=== PATIENT | female | born 1990 | race American Indian/Alaskan Native ===

== ENCOUNTER 2016-11-03 06:43 | Observation (INO) | payer SELFPAY ==
[2016-11-03 06:44] VITALS: BMI 24.2
[2016-11-03] MEDS ORDERED: Sodium Chloride 0.9% 1,000 ML IV ONE (07:03)
[2016-11-03] MEDS ORDERED: Sodium Chloride 0.9% 1,000 ML ONE (07:06)
--- NOTE | 2016-11-03 07:13 | C.PDOC ---
History Of Present Illness 26 y/o F with hx of gastritis and pancreatitis, presenting with vomiting x 2 days. She reports that she has a history of these episodes and cannot identify a trigger. She reports that after she started vomiting she developed some periumbilical abdominal pain. Reports normal bowel and bladder habits. Denies vaginal bleeding or discharge, dysuria, chest pain, SOB, or fever. Time Seen by Provider: 11/03/16 07:07 Chief Complaint (Nursing): Abdominal Pain History Per: Patient History/Exam Limitations: no limitations Onset/Duration Of Symptoms: Days Current Symptoms Are (Timing): Still Present Location Of Pain/Discomfort: Suprapubic Radiation Of Pain To:: None Quality Of Discomfort: "Pain" Associated Symptoms: Vomiting. denies: Fever, Chills, Diarrhea, Back Pain, Chest Pain, Urinary Symptoms Recent travel outside of the [place]: No Abnormal Vaginal Bleeding: No Past Medical History Reviewed: Historical Data, Nursing Documentation, Vital Signs Vital Signs: Last Vital Signs Temp 98.0 F 11/03/16 12:33 Pulse 57 L 11/03/16 12:33 Resp 20 11/03/16 12:33 BP 120/71 11/03/16 12:33 Pulse Ox 100 11/03/16 12:33 - Medical History PMH: Asthma, Gastritis, Pancreatitis - [facility] Procedures ESOPHAGOGASTRODUODENOSCOPY [EGD] W/CLOSED BIOPSY (02/11/14) EXCISION OF STOMACH, ENDO, DIAGN (01/28/16) INFLUENZA VACCINATION (05/14/14) MANUAL ASSIST DELIV NEC (04/26/13) VACCINATION NEC (05/14/14) VENOUS CATHETERIZATION NEC (02/11/14) Family History: States: Unknown Family Hx - Social History Hx Tobacco Use: Yes Hx Alcohol Use: Yes Hx Substance Use: Yes - Immunization History Hx Tetanus Toxoid Vaccination: No Hx Influenza Vaccination: No Hx Pneumococcal Vaccination: No Review Of Systems Constitutional: Negative for: Fever, Chills Cardiovascular: Negative for: Chest Pain, Palpitations, Edema, Light Headedness Respiratory: Negative for: Cough, Shortness of Breath, Wheezing Gastrointestinal: Positive for: Vomiting, Abdominal Pain (periumbilical). Negative for: Diarrhea, Constipation Genitourinary: Negative for: Dysuria, Vaginal Discharge, Vaginal Bleeding Skin: Negative for: Rash Physical Exam - Physical Exam Appears: Well, Non-toxic, No Acute Distress Skin: Normal Color, Warm, Dry Head: Atraumatic, Normacephalic Eye(s): bilateral: Normal Inspection, PERRL, EOMI Oral Mucosa: Moist Chest: Symmetrical Cardiovascular: Rhythm Regular Respiratory: Normal Breath Sounds, No Rales, No Rhonchi, No Wheezing Gastrointestinal/Abdominal: Soft, No Tenderness, No Mass, No Distention, No Guarding, No Rebound Back: Normal Inspection, No CVA Tenderness Extremity: Normal ROM, Capillary Refill (< 2 sec.) Neurological/Psych: Oriented x3, Normal Speech, Normal Cognition ED Course And Treatment - Laboratory Results Result Diagrams: 11/03/16 07:17 11/03/16 07:17 O2 Sat by Pulse Oximetry: 99 (RA) Pulse Ox Interpretation: Normal Medical Decision Making Medical Decision Making: Past Records Reviewed: Patient with multiple visits for similar complaints. Plan: * Pepcid, Zofran, Toradol, IVFs. * Labs, UA ordered. * Reassess Progress: 9:06AM Labs grossly normal. UA negative for or infection. Patient resting comfortably. Patient has had multiple 4 CT scans in past for similar presentation. Patient placed in ED observation. Will continue to monitor and reevaluate 10:22AM Patient continues to vomit 12:16PM Patient reported that her vomiting is sometimes associated with marijuana use. 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 Gave haldol IV 5mg with resolution of symptoms. Patient has soft NT/ND abdomen. She is tolerating po. Will dc to follow-up with PMD and GI Disposition - Disposition Disposition: HOME/ ROUTINE Disposition Time: 12:18 Condition: GOOD - Clinical Impression Clinical Impression: Vomiting - Scribe Statement The provider has reviewed the documentation as recorded by the Tamie Short Provider Attestation: All medical record entries made by the Tamie were at my direction and personally dictated by me. I have reviewed the chart and agree that the record accurately reflects my personal performance of the history, physical exam, medical decision making, and the department course for this patient. I have also personally directed, reviewed, and agree with the discharge instructions and disposition.
[2016-11-03 07:25] LABS: BASO % 0.4 % (0.0-2.0); HEMATOCRIT 37.7 % (34.0-47.0); LYMPH # 0.8 K/uL (1.0-4.3); LYMPH % 10.1 % (20.0-40.0); MEAN CELL VOLUME 83.7 fL (81.0-99.0); MEAN CORPUSCULAR HGB CONC 33.5 g/dL (33.0-37.0); MEAN PLATELET VOLUME 7.7 fL (7.2-11.7); MONO # 0.1 K/uL (0.0-0.8); MONO % 1.4 % (0.0-10.0); RED CELL DISTRIBUTION WIDTH 13.1 % (11.5-14.5); WHITE BLOOD COUNT 7.8 K/uL (4.8-10.8)
[2016-11-03 07:33] LABS: CHLORIDE 100 mmol/L (98-107)
[2016-11-03 07:34] LABS: POTASSIUM 3.5 mmol/L (3.6-5.2); SODIUM 140 mmol/L (132-148)
[2016-11-03 07:36] LABS: ALB/GLOB RATIO 1.2 (1.0-2.1); ALKALINE PHOSPHATASE 95 U/L (38-126); ALT/SGPT 34 U/L (9-52); AST/SGOT 30 U/L (14-36); BILIRUBIN,TOTAL 0.5 mg/dL (0.2-1.3); BLOOD UREA NITROGEN 7 mg/dL (7-17); CARBON DIOXIDE 26 mmol/L (22-30); GFR AFRICAN-AMERICAN > 60; GLUCOSE,RANDOM 128 mg/dL (65-105); TOTAL PROTEIN 8.1 g/dL (6.3-8.3)
[2016-11-03 07:37] LABS: MAGNESIUM 1.7 mg/dL (1.6-2.3); PHOSPHOROUS 2.7 mg/dL (2.5-4.5)
[2016-11-03 08:51] LABS: RBC URINE 3 /hpf (0-3); URINE BILIRUBIN NEGATIVE (NEGATIVE); URINE BLOOD NEGATIVE (NEGATIVE); URINE COLOR Yellow (YELLOW); URINE GLUCOSE (UA) NORMAL (Normal); URINE KETONE 1+ mg/dL (NEGATIVE); URINE LEUKOCYTE ESTERASE NEG Leu/uL (Negative); URINE PROTEIN 1+ mg/dL (NEGATIVE); URINE UROBILINOGEN NORMAL mg/dL (0.2-1.0); WBC URINE 3 /hpf (0-5)
[2016-11-03 12:34] VITALS: BP 120/71; PULSE 57; RESP 20; TEMP 98
[2016-11-03 12:58] VITALS: O2SAT 99
== END 2016-11-03 12:18 | disposition home or self-care (01) ==
LOC: SUPCPDRO 06:43 → C.ER 06:43 → C.9OBSV 09:06
PROVIDERS: ADMIT Emergency Medicine; ATTEND Emergency Medicine
DX: R10.9 Unspecified abdominal pain (principal); J45.909 Unspecified asthma, uncomplicated; Z87.891 Personal history of nicotine dependence; R11.10 Vomiting, unspecified
CPT/HCPCS: 80053; 81001; 83690; 83735; 84100; 84703; 85025; 96361; 96374; 96375; 99285; G0378; J1630; J2405; J7040

== ENCOUNTER 2016-11-05 05:08 | Inpatient (IN) | payer SELFPAY ==
[2016-11-05 05:09] VITALS: BMI 24.2
[2016-11-05] MEDS ORDERED: Sodium Chloride 0.9% 1,000 ML IV ONE (05:29)
[2016-11-05] MEDS ORDERED: Iohexol 240 (50 ml) PO ONE (05:31)
--- NOTE | 2016-11-05 05:35 | C.PDOC ---
History Of Present Illness A 26 y/o F presents with abdominal pain for the past 4-5 days. Patient was here for the same complaint 2 days ago and was discharged. Reports symptoms are persistent where she still is vomiting at home. Denies diarrhea, dysuria, fever , chills, or any other complaints. Time Seen by Provider: 11/05/16 05:35 Chief Complaint (Nursing): Abdominal Pain History Per: Patient History/Exam Limitations: no limitations Onset/Duration Of Symptoms: Days Current Symptoms Are (Timing): Still Present Severity: Mild Location Of Pain/Discomfort: Diffuse Quality Of Discomfort: "Pain" Associated Symptoms: Vomiting. denies: Diarrhea Exacerbating Factors: None Alleviating Factors: None Recent travel outside of the [place]: No Additional History Per: Patient Abnormal Vaginal Bleeding: No Past Medical History Reviewed: Historical Data, Nursing Documentation, Vital Signs Vital Signs: Last Vital Signs Temp 98.5 F 11/05/16 05:17 Pulse 53 L 11/05/16 05:17 Resp 16 11/05/16 05:17 BP 148/93 H 11/05/16 05:17 Pulse Ox 100 11/05/16 05:41 - Medical History PMH: Gastritis, Pancreatitis Denies: Asthma (pt denies), Kidney Stones, Chronic Kidney Disease - [facility] Procedures ESOPHAGOGASTRODUODENOSCOPY [EGD] W/CLOSED BIOPSY (02/11/14) EXCISION OF STOMACH, ENDO, DIAGN (01/28/16) INFLUENZA VACCINATION (05/14/14) MANUAL ASSIST DELIV NEC (04/26/13) VACCINATION NEC (05/14/14) VENOUS CATHETERIZATION NEC (02/11/14) Family History: States: Unknown Family Hx - Social History Hx Tobacco Use: Yes Hx Alcohol Use: No (pt denies) Hx Substance Use: No (pt denies) - Immunization History Hx Tetanus Toxoid Vaccination: No Hx Influenza Vaccination: No Hx Pneumococcal Vaccination: No Review Of Systems Except As Marked, All Systems Reviewed And Found Negative. Constitutional: Negative for: Fever, Chills Gastrointestinal: Positive for: Vomiting, Abdominal Pain. Negative for: Diarrhea Genitourinary: Negative for: Dysuria Physical Exam - Physical Exam Appears: Non-toxic, No Acute Distress Skin: Warm, Dry Head: Atraumatic, Normacephalic Cardiovascular: Rhythm Regular Respiratory: Normal Breath Sounds, No Accessory Muscle Use, No Rales, No Rhonchi , No Wheezing Gastrointestinal/Abdominal: Soft, Tenderness (generalized ), No Guarding, No Rebound Neurological/Psych: Oriented x3, Normal Speech, Normal Cognition Gait: Steady ED Course And Treatment O2 Sat by Pulse Oximetry: 100 (RA) Pulse Ox Interpretation: Normal Medical Decision Making Medical Decision Making: Impression: A 26 y/o F presents with abdominal pain for the past 4-5 days. Pt has numerous prior visits for the same symptoms. Plans: * CT Abd * Blood labs * Omnipaque * Toradol * Reglan * IV fluids * UA * Reassess Disposition - Disposition Disposition Time: 07:00 Condition: STABLE Forms: [facility] (Greek) - POA Present On Arrival: None - Clinical Impression Clinical Impression: Nausea & vomiting, Abdominal pain - Scribe Statement The provider has reviewed the documentation as recorded by the Scribeliz cabrales All medical record entries made by the Scribe were at my direction and personally dictated by me. I have reviewed the chart and agree that the record accurately reflects my personal performance of the history, physical exam, medical decision making, and the department course for this patient. I have also personally directed, reviewed, and agree with the discharge instructions and disposition.
[2016-11-05 05:59] LABS: RBC URINE 14 /hpf (0-3); URINE BACTERIA RARE (<OCC); URINE BILIRUBIN NEGATIVE (NEGATIVE); URINE BLOOD NEGATIVE (NEGATIVE); URINE COLOR Amber (YELLOW); URINE GLUCOSE (UA) NORMAL (Normal); URINE KETONE 2+ mg/dL (NEGATIVE); URINE LEUKOCYTE ESTERASE 3+ Leu/uL (Negative); URINE PROTEIN 2+ mg/dL (NEGATIVE); URINE UROBILINOGEN NORMAL mg/dL (0.2-1.0); WBC URINE 40 /hpf (0-5)
[2016-11-05 06:22] LABS: BASO # 0.1 K/uL (0.0-0.2); EOS % 0.5 % (0.0-4.0); HEMATOCRIT 34.2 % (34.0-47.0); LYMPH # 2.1 K/uL (1.0-4.3); LYMPH % 30.5 % (20.0-40.0); MEAN CELL VOLUME 82.3 fL (81.0-99.0); MEAN CORPUSCULAR HEMOGLOBIN 28.3 pg (27.0-31.0); MEAN CORPUSCULAR HGB CONC 34.5 g/dL (33.0-37.0); MONO # 0.5 K/uL (0.0-0.8); MONO % 7.5 % (0.0-10.0); RED CELL DISTRIBUTION WIDTH 12.8 % (11.5-14.5); WHITE BLOOD COUNT 6.7 K/uL (4.8-10.8)
[2016-11-05 06:33] LABS: ALB/GLOB RATIO 1.3 (1.0-2.1); ALKALINE PHOSPHATASE 66 U/L (38-126); ALT/SGPT 29 U/L (9-52); AST/SGOT 18 U/L (14-36); BILIRUBIN,TOTAL 0.2 mg/dL (0.2-1.3); BLOOD UREA NITROGEN 10 mg/dL (7-17); CALCIUM 8.2 mg/dl (8.6-10.4); CARBON DIOXIDE 25 mmol/L (22-30); CHLORIDE 97 mmol/L (98-107); GFR AFRICAN-AMERICAN > 60; GLUCOSE,RANDOM 73 mg/dL (65-105); POTASSIUM 3.2 mmol/L (3.6-5.2); SODIUM 136 mmol/L (132-148); TOTAL PROTEIN 6.4 g/dL (6.3-8.3)
[2016-11-05] MEDS ORDERED: Iodixanol 320 MG/ML 100 ML BOTTLE IV ONE (08:34)
--- NOTE | 2016-11-05 09:19 | CT ---
PROCEDURE: CT Abdomen and Pelvis with oral and IV contrast. HISTORY: abd pain/ vomiting COMPARISON: CT abdomen pelvis with contrast performed 01/29/16 TECHNIQUE: Contiguous axial images of the abdomen and pelvis. Oral and IV contrast was administered. Coronal and Sagittal reformats generated and reviewed. Contrast dose: 100 mL Visipaque Radiation dose: Total exam DLP = 454.96 mGy-cm. This CT exam was performed using one or more of the following dose reduction techniques: Automated exposure control, adjustment of the mA and/or kV according to patient size, and/or use of iterative reconstruction technique. FINDINGS: LOWER THORAX: No visible consolidation, pleural effusion, or pneumothorax. Small hiatal hernia. Oral contrast within the distal esophagus consistent with gastroesophageal reflux. LIVER: Hypoattenuation of the liver compatible with hepatic steatosis. GALLBLADDER AND BILE DUCTS: Unremarkable. PANCREAS: Unremarkable. SPLEEN: Unremarkable. ADRENALS: Unremarkable. KIDNEYS AND URETERS: The kidneys enhance symmetrically. No hydronephrosis or obstructing renal calculus. BLADDER: The urinary bladder appears unremarkable. REPRODUCTIVE: Uterus is present. Bilateral probable ovarian cysts. APPENDIX: The appendix measures approximately 8 mm in diameter. No significant secondary signs of acute appendicitis identified. BOWEL: The stomach is nondistended. The bowel loops appear within normal limits of caliber without evidence of intestinal obstruction. PERITONEUM: Small pelvic free fluid. No definite free air. LYMPH NODES: Sub cm mesenteric and retroperitoneal lymph nodes, nonspecific. VASCULATURE: No aortic aneurysm. BONES: No acute osseous abnormality is detected. OTHER FINDINGS: None. IMPRESSION: Prominent bilateral probable ovarian cysts. Small pelvic free fluid. Recommend pelvic ultrasound for further evaluation. The appendix appears mildly dilated measuring approximately 8 mm in diameter. No significant secondary signs of acute appendicitis identified. Recommend clinical correlation including white blood cell count and physical exam to assess for possibility of appendicitis. Hepatic steatosis. Additional findings as above.
[2016-11-05] MEDS ORDERED: Morphine 4 MG/ML VIAL ONE (09:32)
[2016-11-05] MEDS ORDERED: Potassium Chloride 20 mEq ER Tab PO STA (09:48)
--- NOTE | 2016-11-05 10:39 | CP.PCM.CON ---
History of Present Illness - History of Present Illness History of Present Illness: General surgery consult note for Dr. Tin Zaidi, PGY-2 Pt S & E at bedside. 26F w/no sig PMH consulted for possible appendicitis. Patient reports diffuse, non radiating, constant, severe abdominal pain x 4 days. No aggravating or alleviating factors identified. Admits to nausea, chills, nb/bilious emesis, anorexia, and constipation. Denies F, diarrhea, flatus, headache, dysuria, CP, palpitations, sore throat. PMH: Gastritis, hx of duodenal ulcer PSH: Denies All: [facility] SH: Admits to ETOH #4-5 drinks/mo, tobacco use- 1 ppd x 11 yrs, MJ use #10 /day , denies other illicit drug use PMD: Denies Review of Systems - Review of Systems All systems: reviewed and no additional remarkable complaints except - Constitutional Constitutional: Chills. absent: Fever - EENT Eyes: absent: Change in Vision Nose/Mouth/Throat: absent: Sore Throat - Cardiovascular Cardiovascular: absent: Chest Pain, Palpitations - Respiratory Respiratory: absent: Cough - Gastrointestinal Gastrointestinal: Abdominal Pain, Constipation, Nausea, Vomiting. absent: Diarrhea, Hematemesis, Hematochezia - Genitourinary Genitourinary: absent: Change in Urinary Stream, Dysuria, Hematuria - Musculoskeletal Musculoskeletal: absent: Numbness, Tingling Past Patient History - Infectious Disease Hx of Infectious Diseases: None - Tetanus Immunizations Tetanus Immunization: Unknown - Past Medical History & Family History Past Medical History?: No - Past Social History Smoking Status: Heavy Smoker > 10 Cigarettes Daily - CARDIAC Hx Cardiac Disorders: No - PULMONARY Hx Asthma: No (pt denies) - NEUROLOGICAL Hx Neurological Disorder: No - HEENT Hx HEENT Problems: No - RENAL Hx Chronic Kidney Disease: No Hx Kidney Stones: No - ENDOCRINE/METABOLIC Hx Endocrine Disorders: No - HEMATOLOGICAL/ONCOLOGICAL Hx Blood Disorders: No - INTEGUMENTARY Hx Dermatological Problems: No - MUSCULOSKELETAL/RHEUMATOLOGICAL Hx Falls: No - GASTROINTESTINAL Hx Gastritis: Yes Hx Pancreatitis: Yes - GENITOURINARY/GYNECOLOGICAL Hx Genitourinary Disorders: No - PSYCHIATRIC Hx Substance Use: No (pt denies) - SURGICAL HISTORY Hx Surgeries: No - ANESTHESIA Hx Anesthesia: No Hx Anesthesia Reactions: No Hx Malignant Hyperthermia: No Meds Allergies/Adverse Reactions: Allergies Allergy/AdvReac Type Severity Reaction Status Date / Time Penicillins Allergy ANGIOEDEMA Verified 11/05/16 05:22 - Medications Medications: Current Medications Sodium Chloride (Sodium Chloride 0.9%) 1,000 mls @ 100 mls/hr IV .Q10H [facility] Stop: 11/05/16 15:28 Last Admin: 11/05/16 06:16 Dose: 100 mls/hr Physical Exam - Constitutional Appears: Non-toxic, No Acute Distress - Head Exam Head Exam: ATRAUMATIC, NORMAL INSPECTION, NORMOCEPHALIC - Eye Exam Eye Exam: EOMI, Normal appearance - ENT Exam ENT Exam: Mucous Membranes Moist, Normal Exam - Neck Exam Neck exam: Positive for: Full Rom - Respiratory Exam Respiratory Exam: Clear to Auscultation Bilateral, NORMAL BREATHING PATTERN. absent: Chest Wall Tenderness - Cardiovascular Exam Cardiovascular Exam: REGULAR RHYTHM, +S1, +S2 - GI/Abdominal Exam GI & Abdominal Exam: Normal Bowel Sounds, Soft, Tenderness (diffuse). absent: Distended, Firm, Guarding, Rigid - Extremities Exam Extremities exam: Positive for: normal inspection. Negative for: pedal edema - Neurological Exam Neurological exam: Alert, Oriented x3 - Psychiatric Exam Psychiatric exam: Normal Affect, Normal Mood - Skin Skin Exam: Dry, Intact, Normal Color, Warm Results - Vital Signs Recent Vital Signs: Last Vital Signs Temp 97.4 F L 11/05/16 09:00 Pulse 54 L 11/05/16 09:00 Resp 14 11/05/16 09:00 BP 154/98 H 11/05/16 09:00 Pulse Ox 100 11/05/16 09:00 - Labs Result Diagrams: 11/05/16 06:17 11/05/16 06:17 Labs: Laboratory Results - last 24 hr 11/05/16 11/05/16 11/05/16 05:35 05:35 06:17 WBC 6.7 RBC 4.16 Hgb 11.8 Hct 34.2 MCV 82.3 MCH 28.3 MCHC 34.5 RDW 12.8 Plt Count 254 MPV 7.0 L Neut % (Auto) 60.5 Lymph % (Auto) 30.5 [place] % (Auto) 7.5 Eos % (Auto) 0.5 Baso % (Auto) 1.0 Neut # 4.1 Lymph # 2.1 [place] # 0.5 Eos # 0.0 Baso # 0.1 Sodium Potassium Chloride Carbon Dioxide Anion Gap BUN Creatinine Est GFR ( Amer) Est GFR (Non-Af Amer) Random Glucose Calcium Total Bilirubin AST ALT Alkaline Phosphatase Total Protein Albumin Globulin Albumin/Globulin Ratio Lipase Urine Color [place] Urine Clarity Hazy Urine pH 5.0 Ur Specific [place] 1.034 H Urine Protein 2+ H Urine Glucose (UA) Normal Urine Ketones 2+ H Urine Blood Negative Urine Nitrate Negative Urine Bilirubin Negative Urine Urobilinogen Normal Ur Leukocyte Esterase 3+ H Urine WBC (Auto) 40 H Urine RBC (Auto) 14 H Ur Squamous Epith Cells 43 H Urine Bacteria Rare Urine HCG, Qual Negative Urine Opiates Screen Negative Urine Methadone Screen Negative Ur Barbiturates Screen Negative Ur Phencyclidine Scrn Negative Ur Amphetamines Screen Negative U Benzodiazepines Scrn Negative U Oth Cocaine Metabols Negative U Cannabinoids Screen Positive 11/05/16 06:17 WBC RBC Hgb Hct MCV MCH MCHC RDW Plt Count MPV Neut % (Auto) Lymph % (Auto) [place] % (Auto) Eos % (Auto) Baso % (Auto) Neut # Lymph # [place] # Eos # Baso # Sodium 136 Potassium 3.2 L Chloride 97 L Carbon Dioxide 25 Anion Gap 17 BUN 10 Creatinine 0.7 Est GFR ( Amer) > 60 Est GFR (Non-Af Amer) > 60 Random Glucose 73 Calcium 8.2 L Total Bilirubin 0.2 AST 18 ALT 29 Alkaline Phosphatase 66 Total Protein 6.4 Albumin 3.6 Globulin 2.8 Albumin/Globulin Ratio 1.3 Lipase 63 Urine Color Urine Clarity Urine pH Ur Specific [place] Urine Protein Urine Glucose (UA) Urine Ketones Urine Blood Urine Nitrate Urine Bilirubin Urine Urobilinogen Ur Leukocyte Esterase Urine WBC (Auto) Urine RBC (Auto) Ur Squamous Epith Cells Urine Bacteria Urine HCG, Qual Urine Opiates Screen Urine Methadone Screen Ur Barbiturates Screen Ur Phencyclidine Scrn Ur Amphetamines Screen U Benzodiazepines Scrn U Oth Cocaine Metabols U Cannabinoids Screen Assessment & Plan - Assessment and Plan (Free Text) Assessment: 26F w/diffuse abdominal pain, likely 2/2 UTI Plan: No surgical intervention at this time Abx for UTI Appendix likely mildly dilated due to constipation Bowel regimen IVF Obgyn consult for ovarian cysts Thank you for this consult DW attending Dyan, PGY-1 - Date & Time Date: 11/05/16 Time: 10:43
[2016-11-05] MEDS ORDERED: Ciprofloxacin 400mg/200ml D5W 400 MG/200 ML BAG IVPB STA (10:49)
[2016-11-05] MEDS ORDERED: Potassium Chloride 20 mEq ER Tab PO ONE (11:01)
[2016-11-05] MEDS ORDERED: Ciprofloxacin 400mg/200ml D5W 400 MG/200 ML BAG IVPB ONE (11:02)
--- NOTE | 2016-11-05 11:03 | US ---
HISTORY: Pelvic pain r/o ovarian cyst COMPARISON: None available. TECHNIQUE: Transabdominal and transvaginal pelvic ultrasound was performed. FINDINGS: UTERUS: Measures 9.2 x 5.2 x 6.4 cm. Retroverted, normal in size and appearance. No fibroid or other mass lesion seen. ENDOMETRIUM: Measures 4 mm in diameter. Unremarkable. CERVIX: No cervical abnormality identified. RIGHT OVARY: Measures 3.8 x 2.4 x 3.1 cm. No solid mass. Normal flow. LEFT OVARY: Measures 4.4 x 2.3 x 3.3 cm. No solid mass. Normal flow. FREE FLUID: There is small amount of free fluid in the cul de sac, likely physiologic. OTHER FINDINGS: None. IMPRESSION: Normal pelvic ultrasound.
--- NOTE | 2016-11-05 11:14 | RAD ---
HISTORY: preop COMPARISON: 01/28/2016 FINDINGS: LUNGS: The lungs are well inflated and clear. PLEURA: No significant pleural effusion identified, no pneumothorax apparent. CARDIOVASCULAR: Normal. OSSEOUS STRUCTURES: No significant abnormalities. VISUALIZED UPPER ABDOMEN: Normal. OTHER FINDINGS: None. IMPRESSION: No active pulmonary disease.
[2016-11-05] MEDS: Sodium Chloride 0.9% 1,000 ML IV SCH (13:43)
--- NOTE | 2016-11-05 16:37 | RAD ---
PROCEDURE: Radiographs of the chest and abdomen (obstructive series) HISTORY: Diffuse Abdominal Pain, NO bowel movement for 3day COMPARISON: CT abdomen and pelvis performed the same day TECHNIQUE: AP radiograph of the chest, with upright and supine radiographs of the abdomen. FINDINGS: CHEST: Lungs: Clear. Cardiovascular: Normal size heart. No pulmonary vascular congestion. Pleura: No pleural fluid. No pneumothorax. Other findings: None. ABDOMEN AND PELVIS: Bowel: The small bowel loops are normal in caliber. There is contrast material in the distal ileum and colon from prior oral ingestion. Free air: None. Bones: Unremarkable. Other findings: None. IMPRESSION: Nonobstructive bowel gas pattern. Clear lungs.
[2016-11-05] MEDS: Pantoprazole 40 mg EC Tab PO SCH (16:56)
--- NOTE | 2016-11-05 18:23 | CP.PCM.PN ---
Subjective - Date & Time of Evaluation Date of Evaluation: 11/05/16 Time of Evaluation: 18:20 - Subjective Subjective: patient interviwed and examined. has a soft abdomen with diffuse abdominal tenderness. no masses. findings not consistent with a five day old appendicitis. regardless no surgery will be schedulred tonight. she just had a whole bowl of soup. will reevaluate in am Objective - Vital Signs/Intake and Output Vital Signs (last 24 hours): Temp Pulse Resp BP Pulse Ox 98.5 F 57 L 18 132/82 100 11/05/16 17:50 11/05/16 17:50 11/05/16 17:50 11/05/16 17:50 11/05/16 17:50 - Medications Medications: Current Medications Sodium Chloride (Sodium Chloride 0.9%) 1,000 mls @ 100 mls/hr IV .Q10H [facility] Last Admin: 11/05/16 13:43 Dose: 100 mls/hr Ciprofloxacin (Cipro 400mg/200ml Dsw) 400 mg in 200 mls @ 133 mls/hr IVPB Q12H [facility] Ketorolac Tromethamine (Toradol) 30 mg IVP Q6 PRN PRN Reason: Pain, severe (8-10) Last Admin: 11/05/16 15:17 Dose: 30 mg Ketorolac Tromethamine (Toradol) 15 mg IVP Q6 PRN PRN Reason: Pain, moderate (4-7) Metoclopramide HCl (Reglan) 10 mg IVP ACHS PRN PRN Reason: Nausea/Vomiting Ondansetron HCl (Zofran Inj) 4 mg IVP Q6 PRN PRN Reason: Nausea/Vomiting Pantoprazole Sodium (Protonix Ec Tab) 40 mg PO DAILY [facility] Last Admin: 11/05/16 16:56 Dose: Not Given
--- NOTE | 2016-11-05 20:13 | CP.PCM.HP ---
<Arsalan Jones - Last Filed: 11/05/16 20:11> History of Present Illness - History of Present Illness History of Present Illness: Chief complaint: "Abdominal pain" 26 yo F who presents here today with c/o severe, diffuse abdominal pain that has been constant x 3-4 days. Patient reports feelings of nausea and multiple episodes of bilious, non-bloody vomiting each day since the pain began. She denies any mitigating factors, but does mention having difficulty ambulating 2/ 2 pain and that any quick movement proves exacerbation. Patient has been unable to tolerate liquid/solid PO, reports constipation (last BM 4 days ago) and endorses feeling mildly lightheaded as well. Of note, she had a similar episode of abdominal pain in January 2016, in which she was admitted here for acute gastritis/pancreatitis. At that time, she had an EGD done that showed erosive gastritis and duodenal polyp, along with noted fecal retention. (-) H. pylori. Her LNMP was from October 21-, no changes from usual, denies any increased flow or clots. Denies any chest pain, SOB, headache, fever, chills or any other complains at this time. PMD: None OBGYN: [facility] PMHx: - Hiatal Hernia - Gastritis - Esophagitis - Asthma (no inhaler or medications at home) PSHx: - EGD (during admission in 2015) FHx: - M: 55yo suffers from DM, CAD, CA x 1, CVA x 2, HTN, HLD, Primary brain tumor ( unknown which) with seizures - F: alcoholism - Younger sister: T2DM Social: - Drugs: Admits to MJ everyday - Tobacco: 1 ppd x 7 years - Alcohol: Admits to a few drinks on occasion - Sexual: In a mcf[facility] monagamous relationship with male partner. 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 absent: Chills, Fever - EENT Eyes: absent: Change in Vision Nose/Mouth/Throat: absent: Sore Throat - Cardiovascular Cardiovascular: Lightheadedness. absent: Chest Pain, Dyspnea on Exertion, Palpitations - Respiratory Respiratory: absent: Cough - Gastrointestinal Gastrointestinal: Abdominal Pain, Constipation, Heartburn, Nausea, Vomiting - Genitourinary Genitourinary: absent: Difficulty Urinating, Dysuria, Urinary Hesitance - Reproductive: Female Reproductive:Female: Normal Menses. absent: Abnormal Vaginal Bleeding, Pelvic Pain - Integumentary Integumentary: absent: Lesions - Neurological Neurological: Dizziness Past Patient History - Infectious Disease Hx of Infectious Diseases: None - Tetanus Immunizations Tetanus Immunization: Unknown - Past Medical History & Family History Past Medical History?: No - Past Social History Smoking Status: Heavy Smoker > 10 Cigarettes Daily - CARDIAC Hx Cardiac Disorders: No - PULMONARY Hx Asthma: No (pt denies) - NEUROLOGICAL Hx Neurological Disorder: No - HEENT Hx HEENT Problems: No - RENAL Hx Chronic Kidney Disease: No Hx Kidney Stones: No - ENDOCRINE/METABOLIC Hx Endocrine Disorders: No - HEMATOLOGICAL/ONCOLOGICAL Hx Blood Disorders: No - INTEGUMENTARY Hx Dermatological Problems: No - MUSCULOSKELETAL/RHEUMATOLOGICAL Hx Falls: No - GASTROINTESTINAL Hx Gastritis: Yes Hx Pancreatitis: Yes - GENITOURINARY/GYNECOLOGICAL Hx Genitourinary Disorders: No - PSYCHIATRIC Hx Substance Use: (marijuana had last wednesday) - SURGICAL HISTORY Hx Surgeries: No - ANESTHESIA Hx Anesthesia: No Hx Anesthesia Reactions: No Hx Malignant Hyperthermia: No Meds Allergies/Adverse Reactions: Allergies Allergy/AdvReac Type Severity Reaction Status Date / Time Penicillins Allergy ANGIOEDEMA Verified 11/05/16 05:22 Physical Exam - Constitutional Additional comments: (+) appears in mild distress 2/2 pain - Head Exam Head Exam: ATRAUMATIC, NORMAL INSPECTION, NORMOCEPHALIC - Eye Exam Eye Exam: EOMI, Normal appearance, PERRL - ENT Exam ENT Exam: Mucous Membranes Moist - Neck Exam Neck exam: Positive for: Normal Inspection. Negative for: Lymphadenopathy - Respiratory Exam Respiratory Exam: Clear to Auscultation Bilateral, NORMAL BREATHING PATTERN - Cardiovascular Exam Cardiovascular Exam: REGULAR RHYTHM, RRR, +S1, +S2 - GI/Abdominal Exam GI & Abdominal Exam: Guarding, Normal Bowel Sounds, Soft, Tenderness. absent: Distended, Firm, Hernia, Mass, Organomegaly, Rebound Additional comments: (+) diffuse tenderness during auscultation as well as light and deep palpation in all quadrants, most notably in the RLQ. (+) Questionably positive mcburney's , psoas and obturator signs b/c patient was diffusely tender and minimal movement elicited pain. (+) CVAT bilaterally R>L - Rectal Exam Rectal Exam: Deferred - Extremities Exam Extremities exam: Positive for: normal inspection. Negative for: calf tenderness, pedal edema, tenderness - Back Exam Back exam: CVA tenderness (L), CVA tenderness (R), NORMAL INSPECTION - Neurological Exam Neurological exam: Alert - Psychiatric Exam Psychiatric exam: Normal Affect, Normal Mood - Skin Skin Exam: Dry, Intact, Normal Color, Warm Results - Vital Signs Recent Vital Signs: Last Vital Signs Temp 98.5 F 11/05/16 17:50 Pulse 57 L 11/05/16 17:50 Resp 18 11/05/16 17:50 BP 132/82 11/05/16 17:50 Pulse Ox 100 11/05/16 17:50 - Labs Result Diagrams: 11/05/16 06:17 11/05/16 06:17 Labs: Laboratory Results - last 24 hr 11/05/16 17:53 Hepatitis A IgM Ab Negative Hep Bs Antigen Negative Hep B Core IgM Ab Negative Hepatitis C Antibody Negative Assessment & Plan (1) Abdominal pain Assessment and Plan: Hx of erosive gastritis, esophagitis, duodonal polyp, hiatal hernia 11/05: GI consulted, Dr Felipe 11/05: Surgery consulted, Dr Chowdary 11/05: Toradol 15mg iv q6 prn for moderate pain. Toradol 30mg iv q6 for severe pain. 11/05: Series abdominal obstructive series xray: nonobstructive bowel gas pattern. 11/05: CT abdomen/pelvis: The appendix appears mildly dilated measuring approximately 8 mm in diameter. No significant secondary signs of acute appendicitis identified. Hepatic steatosis. Prominent bilateral probable ovarian cysts. 11/05: npo after midnight. will start clear liquid diet tomorrow if no GI/Surg intervention. Status: Acute (2) Nausea & vomiting Assessment and Plan: Zofran iv 4mg q6 prn reglan 10mg iv q6 prn Status: Acute (3) UTI (urinary tract infection) Assessment and Plan: 11/05: UA -> Ur Ketones 2+, Ur Leuk Est 3+, Ur RBC 40 11/05: ciprofloxacin 400mg iv q12 11/05: f/u blood culture, urine culture Status: Acute (4) Prophylactic measure Assessment and Plan: SCD's b/l Protonix 40mg po daily npo tonight Status: Acute <Deny Christensen - Last Filed: 11/06/16 18:15> Results - Vital Signs Recent Vital Signs: Last Vital Signs Temp 98.0 F 11/06/16 08:16 Pulse 56 L 11/06/16 08:16 Resp 20 11/06/16 08:16 BP 113/78 11/06/16 08:16 Pulse Ox 96 11/06/16 08:16 - Labs Result Diagrams: 11/05/16 06:17 11/05/16 06:17 Labs: Laboratory Results - last 24 hr 11/05/16 17:53 Hepatitis A IgM Ab Negative Hep Bs Antigen Negative Hep B Core IgM Ab Negative Hepatitis C Antibody Negative Attending/Attestation - Attestation I have personally seen and examined this patient.: Yes I have fully participated in the care of the patient.: Yes I have reviewed all pertinent clinical information: Yes Notes (Text): Patient was seen and examined on 11/05/16. History, Physical, Assessment and Plan/Orders were thoroughly gone over with the Resident. Deny Christensen D.O.
[2016-11-05] MEDS: Ciprofloxacin 400mg/200ml D5W 400 MG/200 ML BAG IVPB SCH (23:13)
[2016-11-06] MEDS: Sodium Chloride 0.9% 1,000 ML IV SCH ×2 (01:37→08:44)
[2016-11-06 01:52] VITALS: RESP 20
--- NOTE | 2016-11-06 07:40 | CP.PCM.PN ---
Subjective - Date & Time of Evaluation Date of Evaluation: 11/06/16 Time of Evaluation: 06:40 - Subjective Subjective: General Sx progress note for Dr. Tin Zaidi, PGY-1 Pt S & E at bedside. Pt reports abdominal pain much improved, now localized to suprapubic area and right side of abdomen. Admits to hunger. Denies other complaints. Objective - Vital Signs/Intake and Output Vital Signs (last 24 hours): Temp Pulse Resp BP Pulse Ox 98.1 F 53 L 20 103/56 L 97 11/06/16 03:12 11/06/16 03:12 11/06/16 03:12 11/06/16 03:12 11/06/16 03:12 - Medications Medications: Current Medications Sodium Chloride (Sodium Chloride 0.9%) 1,000 mls @ 100 mls/hr IV .Q10H [facility] Last Admin: 11/06/16 01:37 Dose: Not Given Ciprofloxacin (Cipro 400mg/200ml Dsw) 400 mg in 200 mls @ 133 mls/hr IVPB Q12H [facility] Last Admin: 11/05/16 23:13 Dose: 133 mls/hr Ketorolac Tromethamine (Toradol) 30 mg IVP Q6 PRN PRN Reason: Pain, severe (8-10) Last Admin: 11/06/16 03:29 Dose: 30 mg Ketorolac Tromethamine (Toradol) 15 mg IVP Q6 PRN PRN Reason: Pain, moderate (4-7) Metoclopramide HCl (Reglan) 10 mg IVP ACHS PRN PRN Reason: Nausea/Vomiting Ondansetron HCl (Zofran Inj) 4 mg IVP Q6 PRN PRN Reason: Nausea/Vomiting Pantoprazole Sodium (Protonix Ec Tab) 40 mg PO DAILY [facility] Last Admin: 11/05/16 16:56 Dose: Not Given - Constitutional Appears: Non-toxic, No Acute Distress - Head Exam Head Exam: ATRAUMATIC, NORMAL INSPECTION, NORMOCEPHALIC - Eye Exam Eye Exam: EOMI, Normal appearance - ENT Exam ENT Exam: Mucous Membranes Moist, Normal Exam - Neck Exam Neck Exam: Full ROM - Respiratory Exam Respiratory Exam: Clear to Ausculation Bilateral, NORMAL BREATHING PATTERN - Cardiovascular Exam Cardiovascular Exam: REGULAR RHYTHM, +S1, +S2 - GI/Abdominal Exam GI & Abdominal Exam: Soft, Tenderness (suprapubic, right quadrants). absent: Distended, Firm, Guarding, Rigid - Extremities Exam Extremities Exam: Full ROM - Neurological Exam Neurological Exam: Alert, Awake, CN II-XII Intact, Oriented x3 - Psychiatric Exam Psychiatric exam: Normal Affect, Normal Mood - Skin Skin Exam: Dry, Intact, Normal Color, Warm Assessment and Plan - Assessment and Plan (Free Text) Assessment: 26F w/abdominal pain, improved Plan: No surgical intervention at this time Pt asking for diet Further mgmt as per primary and GI teams Thank you for this consult, please re-consult as needed DW attending Dyan, PGY-1
--- NOTE | 2016-11-06 08:13 | CP.PCM.CON ---
History of Present Illness - History of Present Illness History of Present Illness: GI service consult We were ot notified about consult. I see the name on my census now. Admitted with abdom karen- LLQ sharp and naus and vomiting. PMH etoh- stopped 2 months ago, pancreatitis, gastritis, duodenitis , esophagitis. EGD done 01.25 Review of Systems - Constitutional Constitutional: Anorexia - EENT Eyes: absent: Photophobia Nose/Mouth/Throat: absent: Dental Pain - Cardiovascular Cardiovascular: absent: Chest Pain, Dyspnea - Respiratory Respiratory: absent: Hemoptysis, Wheezing - Gastrointestinal Gastrointestinal: Abdominal Pain, Constipation, Nausea, Vomiting. absent: Diarrhea, Hematemesis, Hematochezia, Melena - Genitourinary Genitourinary: absent: Hematuria - Musculoskeletal Musculoskeletal: absent: Muscle Cramps - Integumentary Integumentary: absent: Jaundice - Neurological Neurological: absent: Convulsions Past Patient History - Infectious Disease Hx of Infectious Diseases: None - Tetanus Immunizations Tetanus Immunization: Unknown - Past Medical History & Family History Past Medical History?: No - Past Social History Smoking Status: Heavy Smoker > 10 Cigarettes Daily - CARDIAC Hx Cardiac Disorders: No - PULMONARY Hx Asthma: No (pt denies) - NEUROLOGICAL Hx Neurological Disorder: No - HEENT Hx HEENT Problems: No - RENAL Hx Chronic Kidney Disease: No Hx Kidney Stones: No - ENDOCRINE/METABOLIC Hx Endocrine Disorders: No - HEMATOLOGICAL/ONCOLOGICAL Hx Blood Disorders: No - INTEGUMENTARY Hx Dermatological Problems: No - MUSCULOSKELETAL/RHEUMATOLOGICAL Hx Falls: No - GASTROINTESTINAL Hx Gastritis: Yes Hx Pancreatitis: Yes - GENITOURINARY/GYNECOLOGICAL Hx Genitourinary Disorders: No - PSYCHIATRIC Hx Substance Use: (marijuana had last wednesday) - SURGICAL HISTORY Hx Surgeries: No - ANESTHESIA Hx Anesthesia: No Hx Anesthesia Reactions: No Hx Malignant Hyperthermia: No Meds Allergies/Adverse Reactions: Allergies Allergy/AdvReac Type Severity Reaction Status Date / Time Penicillins Allergy ANGIOEDEMA Verified 11/05/16 05:22 - Medications Medications: Current Medications Sodium Chloride (Sodium Chloride 0.9%) 1,000 mls @ 100 mls/hr IV .Q10H [facility] Last Admin: 11/06/16 01:37 Dose: Not Given Ciprofloxacin (Cipro 400mg/200ml Dsw) 400 mg in 200 mls @ 133 mls/hr IVPB Q12H [facility] Last Admin: 11/05/16 23:13 Dose: 133 mls/hr Ketorolac Tromethamine (Toradol) 30 mg IVP Q6 PRN PRN Reason: Pain, severe (8-10) Last Admin: 11/06/16 03:29 Dose: 30 mg Ketorolac Tromethamine (Toradol) 15 mg IVP Q6 PRN PRN Reason: Pain, moderate (4-7) Metoclopramide HCl (Reglan) 10 mg IVP ACHS PRN PRN Reason: Nausea/Vomiting Ondansetron HCl (Zofran Inj) 4 mg IVP Q6 PRN PRN Reason: Nausea/Vomiting Pantoprazole Sodium (Protonix Ec Tab) 40 mg PO DAILY [facility] Last Admin: 11/05/16 16:56 Dose: Not Given Physical Exam - Constitutional Appears: Non-toxic - Neck Exam Neck exam: Negative for: Tenderness - Respiratory Exam Respiratory Exam: Clear to Auscultation Bilateral - Cardiovascular Exam Cardiovascular Exam: RRR - GI/Abdominal Exam GI & Abdominal Exam: Guarding, Normal Bowel Sounds, Soft, Tenderness. absent: Distended Additional comments: mod LLQ tenderness - Extremities Exam Extremities exam: Positive for: normal inspection - Neurological Exam Neurological exam: Alert, Oriented x3 Results - Vital Signs Recent Vital Signs: Last Vital Signs Temp 98.1 F 11/06/16 03:12 Pulse 53 L 11/06/16 03:12 Resp 20 11/06/16 03:12 BP 103/56 L 11/06/16 03:12 Pulse Ox 97 11/06/16 03:12 - Labs Result Diagrams: 11/05/16 06:17 11/05/16 06:17 Labs: Laboratory Results - last 24 hr 11/05/16 17:53 Hepatitis A IgM Ab Negative Hep Bs Antigen Negative Hep B Core IgM Ab Negative Hepatitis C Antibody Negative Assessment & Plan (1) Appendicitis Assessment and Plan: Distended appendix on CT. Seen by Dr Chowdary - for surgery. Status: Acute (2) Abdominal pain Assessment and Plan: Due to appendicitis. Status: Acute (3) Nausea & vomiting Status: Acute (4) UTI (urinary tract infection) Status: Acute (5) Constipation Assessment and Plan: Has not been eating for 5 days Status: Acute (6) Gastritis Assessment and Plan: Rec- PPI/pepcid Status: Acute (7) Pancreatitis Assessment and Plan: In past- from etoh. Status: Acute
[2016-11-06 08:17] VITALS: O2SAT 96
[2016-11-06 08:19] VITALS: BP 113/78; PULSE 56; TEMP 98
[2016-11-06] MEDS ORDERED: Potassium Chloride 20 mEq ER Tab PO SCH (10:00)
[2016-11-06] MEDS: Pantoprazole 40 mg EC Tab PO SCH (11:00)
[2016-11-06] MEDS: Ciprofloxacin 400mg/200ml D5W 400 MG/200 ML BAG IVPB SCH (11:54)
--- NOTE | 2016-11-06 15:07 | CP.PCM.DIS ---
<Cyndi Bangura - Last Filed: 11/06/16 15:03> Provider - Provider Date of Admission: 11/05/16 10:57 Attending physician: Deny Christensen MD Consults: Dr. Felipe- GI Dr. Chowdary- surgery Time Spent in preparation of Discharge (in minutes): 45 Diagnosis - Discharge Diagnosis (1) Abdominal pain Status: Acute Comment: see summary for details Hospital Course - Lab Results Lab Results: Most Recent Lab Values WBC 6.7 K/uL (4.8-10.8) 11/05/16 06:17 RBC 4.16 Mil/uL (3.80-5.20) 11/05/16 06:17 Hgb 11.8 g/dL (11.0-16.0) 11/05/16 06:17 Hct 34.2 % (34.0-47.0) 11/05/16 06:17 MCV 82.3 fL (81.0-99.0) 11/05/16 06:17 MCH 28.3 pg (27.0-31.0) 11/05/16 06:17 MCHC 34.5 g/dL (33.0-37.0) 11/05/16 06:17 RDW 12.8 % (11.5-14.5) 11/05/16 06:17 Plt Count 254 K/uL (130-400) 11/05/16 06:17 MPV 7.0 fL (7.2-11.7) L 11/05/16 06:17 Neut % (Auto) 60.5 % (50.0-75.0) 11/05/16 06:17 Lymph % (Auto) 30.5 % (20.0-40.0) 11/05/16 06:17 Wood % (Auto) 7.5 % (0.0-10.0) 11/05/16 06:17 Eos % (Auto) 0.5 % (0.0-4.0) 11/05/16 06:17 Baso % (Auto) 1.0 % (0.0-2.0) 11/05/16 06:17 Neut # 4.1 K/uL (1.8-7.0) 11/05/16 06:17 Lymph # 2.1 K/uL (1.0-4.3) 11/05/16 06:17 Wood # 0.5 K/uL (0.0-0.8) 11/05/16 06:17 Eos # 0.0 K/uL (0.0-0.7) 11/05/16 06:17 Baso # 0.1 K/uL (0.0-0.2) 11/05/16 06:17 Sodium 136 mmol/L (132-148) 11/05/16 06:17 Potassium 3.2 mmol/L (3.6-5.2) L 11/05/16 06:17 Chloride 97 mmol/L (98-107) L 11/05/16 06:17 Carbon Dioxide 25 mmol/L (22-30) 11/05/16 06:17 Anion Gap 17 (10-20) 11/05/16 06:17 BUN 10 mg/dL (7-17) 11/05/16 06:17 Creatinine 0.7 MG/DL (0.7-1.2) 11/05/16 06:17 Est GFR ( Amer) > 60 11/05/16 06:17 Est GFR (Non-Af Amer) > 60 11/05/16 06:17 Random Glucose 73 mg/dL (65-105) 11/05/16 06:17 Calcium 8.2 mg/dl (8.6-10.4) L 11/05/16 06:17 Total Bilirubin 0.2 mg/dL (0.2-1.3) 11/05/16 06:17 AST 18 U/L (14-36) 11/05/16 06:17 ALT 29 U/L (9-52) 11/05/16 06:17 Alkaline Phosphatase 66 U/L (38-126) 11/05/16 06:17 Total Protein 6.4 g/dL (6.3-8.3) 11/05/16 06:17 Albumin 3.6 g/dL (3.5-5.0) 11/05/16 06:17 Globulin 2.8 gm/dL (2.2-3.9) 11/05/16 06:17 Albumin/Globulin Ratio 1.3 (1.0-2.1) 11/05/16 06:17 Lipase 63 U/L (23-300) 11/05/16 06:17 Urine Color Linda (YELLOW) 11/05/16 05:35 Urine Clarity Hazy (Clear) 11/05/16 05:35 Urine pH 5.0 (5.0-8.0) 11/05/16 05:35 Ur Specific [place] 1.034 (1.003-1.030) H 11/05/16 05:35 Urine Protein 2+ mg/dL (NEGATIVE) H 11/05/16 05:35 Urine Glucose (UA) Normal mg/dL (Normal) 11/05/16 05:35 Urine Ketones 2+ mg/dL (NEGATIVE) H 11/05/16 05:35 Urine Blood Negative (NEGATIVE) 11/05/16 05:35 Urine Nitrate Negative (NEGATIVE) 11/05/16 05:35 Urine Bilirubin Negative (NEGATIVE) 11/05/16 05:35 Urine Urobilinogen Normal mg/dL (0.2-1.0) 11/05/16 05:35 Ur Leukocyte Esterase 3+ Fernando/uL (Negative) H 11/05/16 05:35 Urine WBC (Auto) 40 /hpf (0-5) H 11/05/16 05:35 Urine RBC (Auto) 14 /hpf (0-3) H 11/05/16 05:35 Ur Squamous Epith Cells 43 /hpf (0-5) H 11/05/16 05:35 Urine Bacteria Rare (<OCC) 11/05/16 05:35 Urine HCG, Qual Negative (NEGATIVE) 11/05/16 05:35 Urine Opiates Screen Negative (NEGATIVE) 11/05/16 05:35 Urine Methadone Screen Negative (NEGATIVE) 11/05/16 05:35 Ur Barbiturates Screen Negative (NEGATIVE) 11/05/16 05:35 Ur Phencyclidine Scrn Negative (NEGATIVE) 11/05/16 05:35 Ur Amphetamines Screen Negative (NEGATIVE) 11/05/16 05:35 U Benzodiazepines Scrn Negative (NEGATIVE) 11/05/16 05:35 U Oth Cocaine Metabols Negative (NEGATIVE) 11/05/16 05:35 U Cannabinoids Screen Positive (NEGATIVE) 11/05/16 05:35 Hepatitis A IgM Ab Negative (NEGATIVE) 11/05/16 17:53 Hep Bs Antigen Negative (NEGATIVE) 11/05/16 17:53 Hep B Core IgM Ab Negative (NEGATIVE) 11/05/16 17:53 Hepatitis C Antibody Negative (NEGATIVE) 11/05/16 17:53 - Hospital Course Hospital Course: "Chief complaint: "Abdominal pain" 26 yo F who presents here today with c/o severe, diffuse abdominal pain that has been constant x 3-4 days. Patient reports feelings of nausea and multiple episodes of bilious, non-bloody vomiting each day since the pain began. She denies any mitigating factors, byt does mention having difficulty ambulating 2/2 pain and that any quick movement proves exacerbation. Patient has been unable to tolerate liquid/solid PO, reports constipation (last BM 4 days ago) and endorses feeling mildly lightheaded as well. Of note, she has had multiple similar episodes of abdominal pain over the last 2 years. Including an admission here in January 2016 for acute gastritis/pancreatitis. At that time she had an EGD done that showed hiatal hernia with erosive gastritis and duodenal polyp, along with fecal retention. Her LNMP was from October 21-, no changes from usual, denies any increased flow or clots. Denies any chest pain, SOB, headache, fever, chills or any other complaints at this time. " Patient was admitted to the floor for further medical management. An initial CT done revealed a mildly dilated appendix approx. 8mm in diameter, no significant secondary signs of acute appendicitis identified, but probable bilateral ovarian cysts. Transvaginal US showed normal findings. And KUB showed non-obstructing bowel gas pattern. Initial UA came back positive, however subsequent cultures revealed no growth and ABX were stopped. Her pain was adequately controlled with Toradol IV, and n/v were controlled with Zofran and Reglan. During her stay, patient was seen by both surgery and GI, who felt that she was not a surgical candidate at this time. Patient is feeling better and has an appetite. Patient stable for discharge as per Dr. Christensen. This is a summary of the patient's hospital course. Please see chart for full details. Discharge Exam - Head Exam Head Exam: ATRAUMATIC, NORMAL INSPECTION, NORMOCEPHALIC - Eye Exam Eye Exam: EOMI, Normal appearance, PERRL - ENT Exam ENT Exam: Mucous Membranes Moist - Neck Exam Neck exam: Full Rom - Respiratory Exam Respiratory Exam: Clear to PA & Lateral, UNREMARKABLE - Cardiovascular Exam Cardiovascular Exam: REGULAR RHYTHM, RRR. absent: Gallop, Rubs, Systolic Murmur - GI/Abdominal Exam GI & Abdominal Exam: Normal Bowel Sounds, Unremarkable - Rectal Exam Rectal Exam: NORMAL INSPECTION - Extremities Exam Extremities exam: full ROM - Back Exam Back exam: NORMAL INSPECTION. absent: rash noted - Neurological Exam Neurological exam: Alert, Oriented x3 - Psychiatric Exam Psychiatric exam: Normal Affect, Normal Mood - Skin Skin Exam: Intact, Normal Color, Warm Discharge Plan - Discharge Medications Prescriptions: Omeprazole 40 mg PO DAILY #30 ecc - Follow Up Plan Condition: STABLE Disposition: HOME/ ROUTINE Instructions: Omeprazole (By mouth), Urinary Tract Infection in Women (DC) Additional Instructions: Patient stable for discharge as per Dr. Christensen. Patient to take Omeprazole 40 mg daily. Patient should not lay flat for 1 hour after each meal. For 30 min after each meal patient should try to walk, be upright. Patient should not eat foods that can cause GERD such as coffee, citrus fruit, chocolate, tomatoes, spicy or fatty foods, carbonated beverages or alcohol. Patient was counseled on smoking cessation and will start using a nicoderm patch. Patient to use a 21 mg patch daily for weeks 1-6, 14mg patch daily weeks 7-8 , 7mg patch daily weeks 9-10. Patient cannot smoke during this time. If symptoms worsen or return please return to emergency room immediately. Instructions explained to patient who understands and agrees. Referrals: [facility] [Provider Group] <Deny Christensen - Last Filed: 11/06/16 18:17> Provider - Provider Date of Admission: 11/05/16 10:57 Attending physician: Deny Christensen MD Hospital Course - Lab Results Lab Results: Most Recent Lab Values WBC 6.7 K/uL (4.8-10.8) 11/05/16 06:17 RBC 4.16 Mil/uL (3.80-5.20) 11/05/16 06:17 Hgb 11.8 g/dL (11.0-16.0) 11/05/16 06:17 Hct 34.2 % (34.0-47.0) 11/05/16 06:17 MCV 82.3 fL (81.0-99.0) 11/05/16 06:17 MCH 28.3 pg (27.0-31.0) 11/05/16 06:17 MCHC 34.5 g/dL (33.0-37.0) 11/05/16 06:17 RDW 12.8 % (11.5-14.5) 11/05/16 06:17 Plt Count 254 K/uL (130-400) 11/05/16 06:17 MPV 7.0 fL (7.2-11.7) L 11/05/16 06:17 Neut % (Auto) 60.5 % (50.0-75.0) 11/05/16 06:17 Lymph % (Auto) 30.5 % (20.0-40.0) 11/05/16 06:17 Wood % (Auto) 7.5 % (0.0-10.0) 11/05/16 06:17 Eos % (Auto) 0.5 % (0.0-4.0) 11/05/16 06:17 Baso % (Auto) 1.0 % (0.0-2.0) 11/05/16 06:17 Neut # 4.1 K/uL (1.8-7.0) 11/05/16 06:17 Lymph # 2.1 K/uL (1.0-4.3) 11/05/16 06:17 Wood # 0.5 K/uL (0.0-0.8) 11/05/16 06:17 Eos # 0.0 K/uL (0.0-0.7) 11/05/16 06:17 Baso # 0.1 K/uL (0.0-0.2) 11/05/16 06:17 Sodium 136 mmol/L (132-148) 11/05/16 06:17 Potassium 3.2 mmol/L (3.6-5.2) L 11/05/16 06:17 Chloride 97 mmol/L (98-107) L 11/05/16 06:17 Carbon Dioxide 25 mmol/L (22-30) 11/05/16 06:17 Anion Gap 17 (10-20) 11/05/16 06:17 BUN 10 mg/dL (7-17) 11/05/16 06:17 Creatinine 0.7 MG/DL (0.7-1.2) 11/05/16 06:17 Est GFR ( Amer) > 60 11/05/16 06:17 Est GFR (Non-Af Amer) > 60 11/05/16 06:17 Random Glucose 73 mg/dL (65-105) 11/05/16 06:17 Calcium 8.2 mg/dl (8.6-10.4) L 11/05/16 06:17 Total Bilirubin 0.2 mg/dL (0.2-1.3) 11/05/16 06:17 AST 18 U/L (14-36) 11/05/16 06:17 ALT 29 U/L (9-52) 11/05/16 06:17 Alkaline Phosphatase 66 U/L (38-126) 11/05/16 06:17 Total Protein 6.4 g/dL (6.3-8.3) 11/05/16 06:17 Albumin 3.6 g/dL (3.5-5.0) 11/05/16 06:17 Globulin 2.8 gm/dL (2.2-3.9) 11/05/16 06:17 Albumin/Globulin Ratio 1.3 (1.0-2.1) 11/05/16 06:17 Lipase 63 U/L (23-300) 11/05/16 06:17 Urine Color Linda (YELLOW) 11/05/16 05:35 Urine Clarity Hazy (Clear) 11/05/16 05:35 Urine pH 5.0 (5.0-8.0) 11/05/16 05:35 Ur Specific [place] 1.034 (1.003-1.030) H 11/05/16 05:35 Urine Protein 2+ mg/dL (NEGATIVE) H 11/05/16 05:35 Urine Glucose (UA) Normal mg/dL (Normal) 11/05/16 05:35 Urine Ketones 2+ mg/dL (NEGATIVE) H 11/05/16 05:35 Urine Blood Negative (NEGATIVE) 11/05/16 05:35 Urine Nitrate Negative (NEGATIVE) 11/05/16 05:35 Urine Bilirubin Negative (NEGATIVE) 11/05/16 05:35 Urine Urobilinogen Normal mg/dL (0.2-1.0) 11/05/16 05:35 Ur Leukocyte Esterase 3+ Fernando/uL (Negative) H 11/05/16 05:35 Urine WBC (Auto) 40 /hpf (0-5) H 11/05/16 05:35 Urine RBC (Auto) 14 /hpf (0-3) H 11/05/16 05:35 Ur Squamous Epith Cells 43 /hpf (0-5) H 11/05/16 05:35 Urine Bacteria Rare (<OCC) 11/05/16 05:35 Urine HCG, Qual Negative (NEGATIVE) 11/05/16 05:35 Urine Opiates Screen Negative (NEGATIVE) 11/05/16 05:35 Urine Methadone Screen Negative (NEGATIVE) 11/05/16 05:35 Ur Barbiturates Screen Negative (NEGATIVE) 11/05/16 05:35 Ur Phencyclidine Scrn Negative (NEGATIVE) 11/05/16 05:35 Ur Amphetamines Screen Negative (NEGATIVE) 11/05/16 05:35 U Benzodiazepines Scrn Negative (NEGATIVE) 11/05/16 05:35 U Oth Cocaine Metabols Negative (NEGATIVE) 11/05/16 05:35 U Cannabinoids Screen Positive (NEGATIVE) 11/05/16 05:35 Hepatitis A IgM Ab Negative (NEGATIVE) 11/05/16 17:53 Hep Bs Antigen Negative (NEGATIVE) 11/05/16 17:53 Hep B Core IgM Ab Negative (NEGATIVE) 11/05/16 17:53 Hepatitis C Antibody Negative (NEGATIVE) 11/05/16 17:53 Attending/Attestation - Attestation I have personally seen and examined this patient.: Yes I have fully participated in the care of the patient.: Yes I have reviewed all pertinent clinical information, including history, physical exam and plan: Yes Notes (Text): 11/06/16 18:16 Patient was seen and examined on 11/06/16. Discharge instructions were thoroughly gone over with the Resident. Please note that patient would not wait for nurse to provide her with Rx as mentioned above and left without obtaining them even though it was explained to her that the nurse would be giving them to her. Deny Christensen D.O.
--- NOTE | 2016-11-16 09:24 | CARD ---
APPROVED REPORT EKG Measurement Heart [id number] MI [id number] <Conclusion> Sinus bradycardia Otherwise normal ECG
== END 2016-11-06 14:50 | disposition home or self-care (01) | DRG 690 ==
LOC: C.ER 05:08 → C.9E 10:57 → C.6T 16:47
PROVIDERS: ADMIT Family Medicine; ATTEND Family Medicine
DX: N39.0 Urinary tract infection, site not specified (principal); R63.0 Anorexia; K59.00 Constipation, unspecified; K29.70 Gastritis, unspecified, without bleeding; F17.210 Nicotine dependence, cigarettes, uncomplicated; F12.90 Cannabis use, unspecified, uncomplicated; Z88.0 Allergy status to penicillin

== ENCOUNTER 2016-12-24 13:05 | Emergency (ER) | payer SELFPAY ==
[2016-12-24 13:05] VITALS: BMI 24.2
[2016-12-24 13:47] VITALS: O2SAT 100
[2016-12-24] MEDS ORDERED: Sodium Chloride 0.9% 1,000 ML IV ONE ×2 (14:29→17:46)
[2016-12-24] MEDS ORDERED: Sodium Chloride 0.9% 1,000 ML ONE ×2 (15:02→18:03)
[2016-12-24 15:19] LABS: BASO # 0.1 K/uL (0.0-0.2); EOS % 0.6 % (0.0-4.0); HEMATOCRIT 40.1 % (34.0-47.0); LYMPH # 1.4 K/uL (1.0-4.3); LYMPH % 25.5 % (20.0-40.0); MEAN CELL VOLUME 83.9 fL (81.0-99.0); MEAN CORPUSCULAR HEMOGLOBIN 28.2 pg (27.0-31.0); MEAN CORPUSCULAR HGB CONC 33.6 g/dL (33.0-37.0); MONO # 0.3 K/uL (0.0-0.8); MONO % 5.2 % (0.0-10.0); NRBC % 0.1 % (0.0-2.0); RED CELL DISTRIBUTION WIDTH 13.6 % (11.5-14.5); WHITE BLOOD COUNT 5.7 K/uL (4.8-10.8)
[2016-12-24 15:29] LABS: ALB/GLOB RATIO 1.1 (1.0-2.1); ALKALINE PHOSPHATASE 76 U/L (38-126); ALT/SGPT 47 U/L (9-52); AST/SGOT 31 U/L (14-36); BILIRUBIN,TOTAL 0.7 mg/dL (0.2-1.3); BLOOD UREA NITROGEN 8 mg/dL (7-17); CALCIUM 9.2 mg/dl (8.6-10.4); CARBON DIOXIDE 26 mmol/L (22-30); CHLORIDE 99 mmol/L (98-107); GFR AFRICAN-AMERICAN > 60; GLUCOSE,RANDOM 92 mg/dL (65-105); POTASSIUM 3.8 mmol/L (3.6-5.2); SODIUM 140 mmol/L (132-148); TOTAL PROTEIN 8.1 g/dL (6.3-8.3)
[2016-12-24 17:08] LABS: RBC URINE 12 /hpf (0-3); URINE BACTERIA RARE (<OCC); URINE BILIRUBIN NEGATIVE (NEGATIVE); URINE COLOR Yellow (YELLOW); URINE GLUCOSE (UA) NORMAL (Normal); URINE KETONE 1+ mg/dL (NEGATIVE); URINE LEUKOCYTE ESTERASE 1+ Leu/uL (Negative); URINE PROTEIN 2+ mg/dL (NEGATIVE); URINE UROBILINOGEN NORMAL mg/dL (0.2-1.0); WBC URINE 7 /hpf (0-5)
[2016-12-24 17:16] LABS: URINE BLOOD TRACE (NEGATIVE)
[2016-12-24 18:55] VITALS: BP 101/59; PULSE 58; RESP 20; TEMP 97.4
--- NOTE | 2016-12-24 19:41 | C.PDOC ---
Time Seen by Provider: 12/24/16 14:10 Chief Complaint (Nursing): Abdominal Pain History Per: Patient Onset/Duration Of Symptoms: Days (2) Current Symptoms Are (Timing): Still Present Severity: Moderate Location Of Pain/Discomfort: Diffuse Radiation Of Pain To:: None Quality Of Discomfort: "Pain" Associated Symptoms: Nausea, Vomiting Exacerbating Factors: Food Alleviating Factors: None Last Bowel Movement: Yesterday Recent travel outside of the [place]: No Additional History Per: Prior Records Abnormal Vaginal Bleeding: No Past Medical History Reviewed: Historical Data, Nursing Documentation, Vital Signs Vital Signs: Last Vital Signs Temp 97.4 F L 12/24/16 18:54 Pulse 58 L 12/24/16 18:54 Resp 20 12/24/16 18:54 BP 101/59 L 12/24/16 18:54 Pulse Ox 100 12/24/16 18:54 - Medical History PMH: Gastritis, Pancreatitis Surgical History: No Surg Hx - [facility] Procedures ESOPHAGOGASTRODUODENOSCOPY [EGD] W/CLOSED BIOPSY (02/11/14) EXCISION OF STOMACH, ENDO, DIAGN (01/28/16) INFLUENZA VACCINATION (05/14/14) MANUAL ASSIST DELIV NEC (04/26/13) VACCINATION NEC (05/14/14) VENOUS CATHETERIZATION NEC (02/11/14) Family History: States: Unknown Family Hx - Social History Hx Tobacco Use: Yes Hx Alcohol Use: No (occasional) Hx Substance Use: Yes (Marijuana) - Immunization History Hx Tetanus Toxoid Vaccination: No Hx Influenza Vaccination: No Hx Pneumococcal Vaccination: No Review Of Systems Except As Marked, All Systems Reviewed And Found Negative. Constitutional: Negative for: Fever, Weakness Cardiovascular: Negative for: Chest Pain Respiratory: Negative for: Shortness of Breath Gastrointestinal: Positive for: Nausea, Vomiting, Abdominal Pain. Negative for : Diarrhea, Melena, Hematochezia, Hematemesis Genitourinary: Negative for: Dysuria Musculoskeletal: Negative for: Neck Pain, Back Pain Skin: Negative for: Rash Neurological: Negative for: Weakness, Numbness, Seizures, Altered Mental Status , Headache Physical Exam - Physical Exam Appears: Non-toxic, No Acute Distress Skin: Normal Color, Warm, Dry, No Rash Head: Atraumatic, Normacephalic Eye(s): bilateral: Normal Inspection, PERRL, EOMI Oral Mucosa: Moist Neck: Normal ROM, Supple Cardiovascular: Rhythm Regular Respiratory: Normal Breath Sounds, No Accessory Muscle Use Gastrointestinal/Abdominal: Soft, Tenderness (nonspecific), No Distention Back: No CVA Tenderness Extremity: Normal ROM Neurological/Psych: Oriented x3, Normal Motor, Normal Sensation ED Course And Treatment - Laboratory Results Result Diagrams: 12/24/16 15:14 12/24/16 15:14 Lab Interpretation: No Acute Changes Urine POC: Negative O2 Sat by Pulse Oximetry: 100 Pulse Ox Interpretation: Normal Progress - Interventions Interventions:: Observation, Intravenous fluid - Medications Administered Intravenous: Antiemetic, H-2 karen - Data Reviewed Data Reviewed: Lab, Old records - Patient Status Patient status: Mostly improved - Continuity of Care Discussed patient case with:: Patient, ED Nurse - Patient Plan Patient Plan: Discharge, F/U with PCP Disposition Counseled Patient/Family Regarding: Studies Performed, Diagnosis, Need For Followup, Rx Given, Smoking Cessation - Disposition Referrals: [facility] [Outside] Disposition: HOME/ ROUTINE Disposition Time: 19:42 Condition: IMPROVED Additional Instructions: Avoid marijuana. Follow up in the clinic for further evaluation and treatment. Return to the ER if you develop fever, bloody or black stools, worsening of symptoms or if you have any other concerns. Prescriptions: Pantoprazole Sodium [Protonix] 40 mg PO DAILY #14 ect Sucralfate [Carafate Tab] 1 gm PO QID #120 tab Instructions: Gastritis (ED), Cannabis Abuse (ED) Forms: [facility] (Romanian) Print Language: MACEDONIAN - Clinical Impression Clinical Impression: Abdominal pain, Nausea and vomiting, Marijuana abuse
== END 2016-12-24 19:57 | disposition home or self-care (01) ==
LOC: C.ER 13:05
DX: R10.9 Unspecified abdominal pain (principal); R11.2 Nausea with vomiting, unspecified; F12.10 Cannabis abuse, uncomplicated
CPT/HCPCS: 80053; 81001; 83690; 84703; 85025; 96361; 96374; 96375; 99285; C9113; G0480; J2405; J2765; J7040

== ENCOUNTER 2017-08-06 11:57 | Emergency (ER) | payer OTHER ==
[2017-08-06 11:57] VITALS: BMI 24.2
[2017-08-06 12:03] VITALS: BP 120/71; PULSE 72; RESP 16; TEMP 98.5; O2SAT 98
--- NOTE | 2017-08-06 12:56 | C.PDOC ---
History Of Present Illness 27 y/o female presents to ED with complaints of abdominal pain for 3 days. Patient has been seen at ED multiple times for abdominal pain and earlier attempted to be seen by Dr. Sanchez but patient became aggressive and verbally abusive with staff, requested another doctor to see her. Patient denies diarrhea , constipation or and has not taken medication for symptoms. (Bryan Martinez) Time Seen by Provider: 08/06/17 12:36 Chief Complaint (Nursing): Abdominal Pain Past Medical History - Medical History PMH: Gastritis, Pancreatitis Denies: Asthma (pt denies), Kidney Stones, Chronic Kidney Disease Family History: States: Unknown Family Hx - Social History Hx Tobacco Use: Yes Hx Alcohol Use: No (occasional) Hx Substance Use: Yes (Marijuana) - Immunization History Hx Tetanus Toxoid Vaccination: No Hx Influenza Vaccination: No Hx Pneumococcal Vaccination: No Vital Signs: Last Vital Signs Temp 98.5 F 08/06/17 12:00 Pulse 72 08/06/17 12:00 Resp 16 08/06/17 12:00 BP 120/71 08/06/17 12:00 Pulse Ox 98 08/06/17 12:55 - [facility] Procedures ESOPHAGOGASTRODUODENOSCOPY [EGD] W/CLOSED BIOPSY (02/11/14) EXCISION OF STOMACH, ENDO, DIAGN (01/28/16) INFLUENZA VACCINATION (05/14/14) MANUAL ASSIST DELIV NEC (04/26/13) VACCINATION NEC (05/14/14) VENOUS CATHETERIZATION NEC (02/11/14) ED Course And Treatment O2 Sat by Pulse Oximetry: 98 Disposition - Disposition Forms: [employer] (German)
[2017-08-06] MEDS ORDERED: Sodium Chloride 0.9% 1,000 ML IV ONE (13:31)
[2017-08-06] MEDS ORDERED: Alum-Mag Hydrox-Simethicone Susp (30 mL) PO STA (14:14)
--- NOTE | 2017-08-06 14:18 | C.PDOC ---
History Of Present Illness 27 y/o female presents to ED with complaints of abdominal pain for 3 days. Patient has been seen at ED multiple times for abdominal pain and earlier attempted to be seen by Dr. Sanchez but patient became aggressive and verbally abusive with staff, requested another doctor to see her. Patient denies diarrhea , constipation or and has not taken medication for symptoms. No other complaints at this time. Time Seen by Provider: 08/06/17 12:36 Chief Complaint (Nursing): Abdominal Pain History Per: Patient History/Exam Limitations: no limitations Onset/Duration Of Symptoms: Days Current Symptoms Are (Timing): Still Present Location Of Pain/Discomfort: Diffuse Past Medical History Reviewed: Historical Data, Nursing Documentation, Vital Signs Vital Signs: Last Vital Signs Temp 98.5 F 08/06/17 12:00 Pulse 72 08/06/17 12:00 Resp 16 08/06/17 12:00 BP 120/71 08/06/17 12:00 Pulse Ox 98 08/06/17 14:23 - Medical History PMH: Gastritis, Pancreatitis Surgical History: No Surg Hx - [facility] Procedures ESOPHAGOGASTRODUODENOSCOPY [EGD] W/CLOSED BIOPSY (02/11/14) EXCISION OF STOMACH, ENDO, DIAGN (01/28/16) INFLUENZA VACCINATION (05/14/14) MANUAL ASSIST DELIV NEC (04/26/13) VACCINATION NEC (05/14/14) VENOUS CATHETERIZATION NEC (02/11/14) Family History: States: No Known Family Hx - Social History Hx Tobacco Use: Yes Hx Alcohol Use: No (occasional) Hx Substance Use: Yes (Marijuana) - Immunization History Hx Tetanus Toxoid Vaccination: No Hx Influenza Vaccination: No Hx Pneumococcal Vaccination: No Review Of Systems Constitutional: Negative for: Fever, Chills Cardiovascular: Negative for: Chest Pain Gastrointestinal: Positive for: Abdominal Pain. Negative for: Nausea, Vomiting , Diarrhea Skin: Negative for: Rash Physical Exam - Physical Exam Appears: Non-toxic, No Acute Distress, Other (Agressive) Skin: Warm, Dry, No Rash Head: Atraumatic, Normacephalic Eye(s): bilateral: Normal Inspection Oral Mucosa: Moist Neck: Normal ROM, Supple Cardiovascular: Rhythm Regular Respiratory: Normal Breath Sounds, No Rales, No Rhonchi, No Wheezing Gastrointestinal/Abdominal: Soft, No Tenderness, No Guarding, No Rebound Back: No CVA Tenderness Extremity: Normal ROM, Capillary Refill (<2 seconds) Neurological/Psych: Oriented x3, Normal Speech, Normal Cognition ED Course And Treatment O2 Sat by Pulse Oximetry: 98 (RA) Pulse Ox Interpretation: Normal Medical Decision Making Medical Decision Making: adm for same complaints 05/27 dx as erosive gastritis Security to bedside multiple times during brief ED visit pt persistently refusing testing and treatment modalities from multiple providers Offered MAalox/Protonix for presumed recurrence of same gastritis, pt declined Pt unable to contribute or participate productively to visit and verbally abusive and assaultive w ED staff and Security, 1430: escorted from ED by Security Disposition Doctor Will See Patient In The: Office Counseled Patient/Family Regarding: Studies Performed, Diagnosis - Disposition Disposition: HOME/ ROUTINE Disposition Time: 14:31 Condition: GOOD Forms: [facility] (Hungarian) - Clinical Impression Clinical Impression: Mixed disturbance of conduct and emotions, Abdominal discomfort - Scribe Statement The provider has reviewed the documentation as recorded by the Scribeliz Urena All medical record entries made by the Osielibeliz were at my direction and personally dictated by me. I have reviewed the chart and agree that the record accurately reflects my personal performance of the history, physical exam, medical decision making, and the department course for this patient. I have also personally directed, reviewed, and agree with the discharge instructions and disposition.
[2017-08-06 14:22] LABS: HCG,QUALITATIVE URINE NEGATIVE (NEGATIVE)
[2017-08-06 14:33] LABS: SQUAMOUS EPITHIAL 13 /hpf (0-5); URINE BACTERIA RARE (<OCC); URINE BILIRUBIN NEGATIVE (NEGATIVE); URINE BLOOD NEGATIVE (NEGATIVE); URINE CLARITY Hazy (Clear); URINE GLUCOSE (UA) NORMAL (Normal); URINE LEUKOCYTE ESTERASE NEG Leu/uL (Negative); URINE PROTEIN 2+ mg/dL (NEGATIVE); URINE UROBILINOGEN NORMAL mg/dL (0.2-1.0)
[2017-08-06 14:34] LABS: URINE COLOR YELLOW (YELLOW)
[2017-08-06 14:47] LABS: BARBITURATES, UR NEGATIVE (NEGATIVE); BENZODIAZEPINES, UR NEGATIVE (NEGATIVE); OPIATES, UR NEGATIVE (NEGATIVE); PHENCYCLIDINE, UR NEGATIVE (NEGATIVE)
== END 2017-08-06 14:44 | disposition home or self-care (01) ==
LOC: C.ER 11:57
DX: R10.9 Unspecified abdominal pain (principal); F91.8 Other conduct disorders